=== PATIENT | male | born 1965 | race Caucasian/White ===

== ENCOUNTER 2016-11-26 08:23 | Day surgery (SDC) | payer BC ==
[2016-11-26] VITALS (10 sets, daily range): BP systolic 99–141; BP diastolic 59–78; PULSE 63–80; RESP 14–18; Ht 180.3 cm; Wt 127.5 kg
[~2016-11-26] VITALS: Ht 180.3 cm; Wt 127.5 kg
[~2016-11-26 08:23] MED LIST: ASPI-664 PO; ATOR40TA68 PO; CARV3.12 PO; LISI2.5T80 PO; NIT4 SL; TICA90TA PO
[2016-11-26] MEDS ORDERED: CLON1TAB3 PO (09:09)
[2016-11-26] MEDS ORDERED: RANI150T5 PO (09:09)
[2016-11-26 09:25] LABS: ADD SCAN DIFF NO
[2016-11-26 09:30] LABS: BASOPHIL # 0.1 10^3/ul (0.0-0.1); BASOPHILS % 0.7 % (0.0-2.0); EOSINOPHILS # 0.3 10^3/ul (0.0-0.5); EOSINOPHILS % 3.4 % (0.0-7.0); HEMATOCRIT 44.6 % (42.0-52.0); HEMOGLOBIN 14.6 g/dl (14.0-18.0); LYMPHOCYTES # 3.3 10^3/ul (0.8-2.9); LYMPHOCYTES % 36.4 % (15.0-51.0); MEAN CORPUSCULAR HEMOGLOBIN 28.9 pg (29.0-33.0); MEAN CORPUSCULAR HGB CONC 32.7 g/dl (32.0-37.0); MEAN CORPUSCULAR VOLUME 88.3 fl (82.0-101.0); MONOCYTE # 0.6 10^3/ul (0.3-0.9); MONOCYTES % 6.8 % (0.0-11.0); NEUTROPHIL # 4.7 10^3/ul (1.6-7.5); NEUTROPHILS % 52.1 % (39.0-77.0); PLATELET COUNT 269 10^3/UL (140-415); RED BLOOD COUNT 5.05 10^6/ul (4.70-6.10); RED CELL DISTRIBUTION WIDTH 13.5 % (11.5-14.5)
[2016-11-26 09:46] LABS: INR 0.93; PROTIME 12.5 Sec (12.2-14.2)
[2016-11-26 09:47] LABS: CHOL/HDL RATIO 3.5 RATIO; PARTIAL THROMBOPLASTIN TIME 30.3 Sec (25.0-35.0)
[2016-11-26 09:52] LABS: CALCIUM 9.9 mg/dl (8.4-10.2); CREATININE 0.99 mg/dl (0.61-1.24)
[2016-11-26] MEDS ORDERED: SOD CHLORIDE 0.45% 1,000 ML IV SCH (10:00)
[2016-11-26] MEDS ORDERED: LIDOCAINE 1% (MDV) 20 ML INJ ONE (10:04)
[2016-11-26] MEDS ORDERED: IODIXANOL LOCM 100 ML BTL ONE ×2 (10:04→11:22)
[2016-11-26] MEDS ORDERED: HEPARIN 1000 UNITS/ML 10 ML INJ ONE (10:05)
[2016-11-26] MEDS ORDERED: VERAPAMIL 5 MG INJ ONE (10:05)
[2016-11-26] MEDS ORDERED: NITROGLYCERIN (IC) 100 MCG/ML INJ ONE (10:05)
[2016-11-26] MEDS ORDERED: MIDAZOLAM 1 MG/ML 2 ML INJ ONE (10:05)
[2016-11-26] MEDS ORDERED: FENTAnyl 50 MCG/ML VIAL ONE (10:06)
--- NOTE | 2016-11-26 10:11 | RADRPT ---
PROCEDURE: XR Chest. CLINICAL INDICATION: chest pain, preoperative TECHNIQUE: Single frontal view of the chest was obtained COMPARISON: 08/30/2014 FINDINGS: The heart and mediastinum are within normal limits. There are mild left lower lobe linear atelectatic changes. The lungs are otherwise clear. There is no pleural effusion or pneumothorax. RPTAT: AA IMPRESSION: No acute disease. Mild left lower lobe linear atelectatic changes. .Jarrod Mercado MD, MD Date Time Electronically viewed and signed by .Jarrod Mercado MD, on 11/26/2016 10:11 .S/
[2016-11-26] MEDS ORDERED: DIPHENHYDRAMINE 50 MG CAP PO SCH (10:30)
[2016-11-26] MEDS ORDERED: DIAZEPAM 5 MG TAB PO SCH (10:30)
[2016-11-26] MEDS ORDERED: FAMOTIDINE 20 MG TAB PO SCH (10:30)
[2016-11-26] MEDS ORDERED: TICAGRELOR 90 MG TABLET ONE (11:20)
[2016-11-26] MEDS ORDERED: SOD CHLORIDE 0.9% 1,000 ML IV SCH (11:38)
[2016-11-26] MEDS ORDERED: morphine 2 MG INJ IV PRN (12:00)
[2016-11-26] MEDS ORDERED: ACETAMINOPHEN 325 MG TAB PO PRN (12:00)
[2016-11-26] MEDS ORDERED: ONDANSETRON 4 MG INJ IV PRN (12:00)
[2016-11-26] MEDS ORDERED: HOLD all METFORMIN and METFORMIN CONTAINING medications for 48 hours post procedure. Chec XX ONE (12:00)
[2016-11-26] MEDS ORDERED: AL HYDROX/MG HYDROX/SIMETH 30 ML CUP PO PRN (12:00)
--- NOTE | 2016-11-27 15:43 | RADRPT ---
Vent Rate: 83 bpm RR Interval: 0 msec GA Interval: 190 msec QRS Duration: 84 msec QT Interval: 372 msec QTC Interval: 437 msec P-R-T [place]: 32 - 21 - 36 degrees Normal sinus rhythm Cannot rule out Anterior infarct , age undetermined Abnormal ECG Electronically Signed By: Chandrakant Condon [id number]
--- NOTE | 2016-12-01 18:27 | CARRPT ---
DATE OF PROCEDURE: 11/26/2016 TYPE OF PROCEDURE: 1. Left heart catheterization. 2. Coronary angiography. 3. Measurement of left ventricular end diastolic pressure. 4. Moderate conscious sedation time was 45 minutes. ATTENDING PHYSICIAN: Keri Schwarz MD INDICATION: Chest pain with positive stress test findings for anterior and inferior ischemia, high risk markers for cardiovascular events. TYPE OF ANESTHESIA: Conscious and local. BRIEF HISTORY: Mr. Salinas is a 51-year-old male with a history of hypertension, dyslipidemia, leatha nary artery disease, status post prior PTCA and stent placement, who initially presented with compla ints of substernal chest pain. The patient had been placed on ____ medical therapy. He had chest p ain. He, therefore, underwent a cardiac stress test revealing positive ischemia. The patient has n ow been brought to the [facility] in order to assess for the possibility of recurrent signific ant obstructive coronary artery disease lending to his symptoms of chest pain and subsequent positiv e stress test findings with chest pain. DESCRIPTION OF PROCEDURE: After informed consent was obtained, the patient was brought to the [facility] cardiac catheterization lab where his right radial wrist was prepped and renetta ped in usual sterile fashion. Lidocaine 2% was infiltrated into the right radial area to achieve lo ashley anesthesia. With modified Seldinger technique, the radial artery was cannulated and a 6-Danish arterial sheath was placed. A 6-Danish JL3.5 catheter was used to cannulate the left main coronary ostium. With contrast injection, multiple views of the left coronary arterial system were obtained. JL3.5 was removed over a guidewire and a JR4 was used to cannulate the right coronary arterial ost ium. With contrast injection, multiple views of the right coronary arterial system were obtained. JR4 was removed over a guidewire and a 6-Danish pigtail was used to cross the ____. Left ventricula r end-diastolic pressure was measured. Using a power injector, 20 mL of contrast were injected opac ifying the left ventricle and performing a left ventriculogram and the pigtail catheter was pulled back across the aortic valve to assess for significant gradient, which there was not, and removed. This completed the procedure. There were no noted complications. CORONARY ANGIOGRAPHY: Left main, 4 mm, with a distal 20% to 30% stenosis. Circumflex proximally is a 3 mm vessel, and is free of stenosis in the proximal portion. Its mid portion has a 30% stenosis . There is a mid branching obtuse marginal, 3 mm vessel, with an eccentric-appearing 50% stenosis. The LAD proximally is a 3 mm vessel and has a 30% stenosis proximal portion and it is a widely carvalho nt stented zone with no significant in-stent restenosis. The LAD goes around the apex. There are s everal mid branching diagonals, all sub 2 mm vessels, with mild luminal irregularities up to 20% to 30%. The right coronary artery proximally is a 3.5 mm vessel and, shortly after its takeoff, has a focal appearing 30% to 40% stenosis. The remainder of the right coronary, thereafter, is free of si gnificant focal stenoses. It is a dominant vessel and, therefore, gives off a 2 mm PDA with no sign ificant focal stenoses and a 2.5 mm posterolateral branch with no significant focal stenoses. TOTAL FLUOROSCOPY TIME: 6 minutes. TOTAL CONTRAST: 50 mL. IMPRESSION: 1. Mild to moderate nonobstructive coronary artery disease. 2. Widely patent left anterior descending stent. 3. Left ventricular systolic function at the lower limits of normal, approximately 50%. 4. No significant aortic stenosis by gradient. RECOMMENDATIONS: In light of the procedure findings, at this time would: 1. Maximize medical management. 2. Aggressive risk factor reduction. 3. The patient will be readmitted to the same day surgery center for post-cath observation with pro bable discharge later this afternoon. ADDENDUM: The patient's left ventricular ejection fraction was approximately 50% with no significan t aortic stenosis by gradient or elevated LVEDP. Dictated By: KERI COTTER/SHREYA Conf#: [id number] DID#: [id number]
== END 2016-11-26 16:55 | disposition home or self-care (01) ==
LOC: SDS 08:23
PROVIDERS: ATTEND Internal Medicine
DX: I25.10 Atherosclerotic heart disease of native coronary artery without angina pectoris (principal); E78.5 Hyperlipidemia, unspecified; I25.2 Old myocardial infarction; I10 Essential (primary) hypertension; F41.9 Anxiety disorder, unspecified
CPT/HCPCS: 71010; 80048; 80061; 85025; 85610; 85730; 93005; 93458; C1769; C1887; J1644; J2250; J3010; Q9967